=== PATIENT | female | born 1985 | race Caucasian/White ===

== ENCOUNTER 2022-02-14 16:05 | Outpatient (CLI) | payer OTHER, SELFPAY | END 2022-02-14 16:06 | disposition home or self-care (01) | LOC: LKVREF 16:27 | PROVIDERS: Visit Provider Otolaryngology | DX: G25.81 Restless legs syndrome (principal) | CPT/HCPCS: 82728 ==

== ENCOUNTER 2022-03-18 09:00 | Day surgery (SDC) | payer OTHER, SELFPAY ==
[2022-03-18] VITALS (36 sets, daily range): BP systolic 106–124; BP diastolic 67–82; PULSE 74–95; RESP 12–16; TEMP 36.1–36.6; O2SAT 95–99; BMI 24.8
[2022-03-18 09:21] LABS: Ur HCG Qualitative* Negative (Negative)
[2022-03-18] MEDS: OXYMETAZOLINE 0.05% NASAL SPRAY 2 SPRAY NOSTRIL-B ×2 (09:34)
[2022-03-18] MEDS: LACTATED RINGERS 1000 ML 1,000 ML 100 ML IV (09:46)
[2022-03-18] MEDS: SODIUM CHLORIDE 0.9 % (FLUSH) 10 ML SYRINGE IVF (09:47)
[2022-03-18] MEDS: COCAINE HCL 4 % 4 ML SOLUTION NOSTRIL-B ×2 (11:08→11:12)
[2022-03-18] MEDS: BUPIVACAINE 0.5 %/EPI 1:200K 30 ML INJECTION (11:12)
[2022-03-18] MEDS: BUPIVACAINE 0.5%/EPINEPHRINE 0.9 MG (30.9 ML) INJECTION (11:12)
--- NOTE | 2022-03-18 11:16 | SUR.OPER ---
PATIENT QUESTIONS ANSWERED SATISFACTORILY PREOPERATIVELY. PATIENT BROUGHT TO OR #2 PER CART. Patient positioned supine on OR #2 bed. ?Perioperative team tucked arms bilaterally at patient side with drawsheet. ?Final approval of positioning by surgeon.
[2022-03-18] MEDS: MUPIROCIN 1 GM PACKET 1 APPLIC TOPICAL ×2 (11:21)
--- NOTE | 2022-03-18 11:30 | W.PM.ENTPROC ---
Procedure Note Date of procedure: 03/18/22 Procedure: Preoperative diagnosis is left middle turbinate constanza bullosa deviated septum inferior turbinate hypertrophy nasal obstruction, nasal headache. Postoperative diagnosis same Procedure nasal septoplasty submucous partial resection inferior turbinates and endoscopic partial resection left middle turbinate constanza bullosa. Under general endotracheal anesthesia patient was prepped and draped in usual fashion and the nose injected and decongested. A right hemitransfixion incision was made left anterior and posterior tunnels were created. A vertical incision was made to the cartilage and a right posterior tunnel created. The posterior deflected portions of septal bone and cartilage were resected a large piece was trimmed and returned to the posterior intraseptal space. A stab incision was made in the anterior head of the right inferior turbinate a tunnel created with a Faulkner dissector. A conservative anterior submucous resection was performed. The constanza bone was also outfractured. The Coblation Wand was used to cauterize intramurally at the anterior head and inferior 10% also. This was repeated on the left side in identical fashion. The remainder procedure was done with the available assistance of a 0 degree endoscope. The incision was made along the inferolateral aspect of the left middle turbinate with a 15 blade. They Consul cavity was entered and the incision completed with the turbinate scissors. The Cohutta forceps were used to crush the left middle turbinate constanza bullosa. The hemitransfixion was then closed with 2 4-0 chromic sutures and silastic stents secured with 3-0 nylon. A Merocel pack was trimmed lengthwise coated with Bactroban and placed beneath the middle turbinates on each side. The patient tolerated procedure well was taken to recovery in satisfactory condition. Blood loss less than 10 mL. There were no complications. Surgeon: Oscar Castañeda MD
--- NOTE | 2022-03-18 11:35 | W.ANESCHARGE ---
Anesthesia Charges Start Date/Time Anesthesia Start Date: 03/18/22 Anesthesia Start Time: 10:54 Stop Date/Time Anesthesia Stop Date: 03/18/22 Anesthesia Stop Time: 11:35 Summary Emergency: No
--- NOTE | 2022-03-18 11:40 | W.ANESCHARGE ---
Anesthesia Charges Start Date/Time Anesthesia Start Date: 03/18/22 Anesthesia Start Time: 10:54 Stop Date/Time Anesthesia Stop Date: 03/18/22 Anesthesia Stop Time: 11:35 Summary Emergency: No
[2022-03-18] MEDS: OXYCODONE 5 MG TABLET PO (12:50)
== END 2022-03-18 13:22 | disposition home or self-care (01) ==
PROVIDERS: Visit Provider Otolaryngology
PROC: (CPT 31231; principal; 2022-03-18 10:15)
DX: J34.2 Deviated nasal septum (principal); J34.3 Hypertrophy of nasal turbinates; R51.9 Headache, unspecified
CPT/HCPCS: 30520; 30140; 31240; 160; 81025; A9270; J0330; J1100; J2405; J2704; J3010; J3490; J7120